=== PATIENT | female | born 1965 | race Caucasian/White ===

== ENCOUNTER 2019-02-04 10:11 | Emergency (ER) | payer OTHER ==
[~2019-02-04] VITALS: Ht 162.6 cm; Wt 72.6 kg
--- NOTE | 2019-02-04 14:35 | EKG ---
[facility] [address] [facility] [place], [place] [address] Signed Normal sinus rhythm Normal ECG No previous ECGs available Confirmed by LINDA MILNER DO ([id number]) on 02/04/2019 2:35:01 PM Electronically Signed By: LINDA MILNER DO 02/04/19 1435 PATIENT NAME: EDWIN LAUGHLIN Electrocardiogram DATE OF : 63 PHYSICIAN: LINDA MILNER DO REPORT #: [id number] REPORT IS CONFIDENTIAL AND NOT TO BE RELEASED WITHOUT AUTHORIZATION
== END 2019-02-04 13:15 | disposition home or self-care (01) ==
LOC: ED 10:11
DX: K21.9 Gastro-esophageal reflux disease without esophagitis (principal); Z90.49 Acquired absence of other specified parts of digestive tract; Z90.710 Acquired absence of both cervix and uterus
CPT/HCPCS: 36415; 71046; 80053; 83735; 84443; 84484; 85025; 93005; 93010; 99285-25

== ENCOUNTER 2021-09-15 16:26 | Emergency (ER) | payer OTHER ==
[~2021-09-15] VITALS: Ht 162.6 cm; Wt 70.4 kg
[2021-09-15] MEDS ORDERED: ALLEGRA ALLERG180 MG PO (17:00)
[2021-09-15] MEDS ORDERED: OMEPRAZOLE20 MG PO (17:00)
[2021-09-15] MEDS ORDERED: FLONASE ALLERG9.9 ML NAS (17:00)
[2021-09-15] MEDS ORDERED: CEPHALEXIN500 M1 PO (19:08)
== END 2021-09-15 19:15 | disposition home or self-care (01) ==
LOC: ED 16:26
DX: L03.022 Acute lymphangitis of left finger (principal); K21.9 Gastro-esophageal reflux disease without esophagitis; Z79.899 Other long term (current) drug therapy
CPT/HCPCS: 36415; 80048; 85025; 96374; 99283-25; J0690